=== PATIENT | female | born 1930 | race Asian ===

== ENCOUNTER 2017-03-17 00:35 | Inpatient (IN) | payer OTHER ==
[~2017-03-17] VITALS: Ht 152.4 cm; Wt 59.0 kg
[2017-03-17 01:32] LABS: BASOPHIL % 0.4 % (0-2); PLATELET COUNT 142 x10^3mcL (130-400)
[2017-03-17 01:39] LABS: CALCIUM 8.7 mg/dL (8.5-10.1); CARBON DIOXIDE 25.7 mmol/L (21-32); CHLORIDE SERUM 104 mmol/L (98-107); GLUCOSE SERUM 181 mg/dL (74-106); POTASSIUM SERUM 3.8 mmol/L (3.5-5.1); RED CELL DISTRIBUTION WIDTH 14.6 % (11.5-14.5); SODIUM SERUM 138 mmol/L (136-145)
[2017-03-17 01:47] LABS: ALBUMIN 3.5 g/dL (3.4-5.0); ALKALINE PHOSPHATASE 57 U/L (46-116); ALT/SGPT 26 U/L (14-59); AST/SGOT 26 U/L (15-37); BILIRUBIN TOTAL 1.44 mg/dL (0.20-1.00); TOTAL PROTEIN, SERUM 8.2 g/dL (6.4-8.2)
[2017-03-17 01:52] LABS: CK-MB < 0.5 ng/mL (0-3.6); CREATINE KINASE 58 U/L (26-192)
[2017-03-17] MEDS ORDERED: ATENOLOL25 MG PO (02:39)
[2017-03-17] MEDS ORDERED: LOVASTATIN40 MG PO (03:15)
[2017-03-17] MEDS ORDERED: TENORMIN50 MG PO (03:16)
[2017-03-17 03:48] VITALS: BP 137/67
[2017-03-17 03:49] LABS: microscopic required? YES; urine erythrocyte NEGATIVE (NEGATIVE)
[2017-03-17 04:45] LABS: CHOLESTEROL/HDL RATIO 2.6
[2017-03-17 04:47] LABS: FREE T4 1.3 ng/dL (0.76-1.46); FREE THYROXINE INDEX 3.4 ug/dL (1.4-4.5); T4(THYROXINE) 11.1 ug/dL (4.7-13.3)
[2017-03-17 10:40] VITALS: BP 116/62
[2017-03-17 14:00] VITALS: BP 122/64
[2017-03-17 14:00] LABS: BASOPHIL % 0.2 % (0-2); PLATELET COUNT 130 x10^3mcL (130-400)
[2017-03-17 14:24] LABS: RED CELL DISTRIBUTION WIDTH 14.9 % (11.5-14.5)
[2017-03-17 18:18] VITALS: BP 138/70
[2017-03-17 22:48] VITALS: BP 152/70
[2017-03-18 06:05] LABS: BASOPHIL % 0.4 % (0-2); PLATELET COUNT 138 x10^3mcL (130-400)
[2017-03-18 06:26] LABS: BILIRUBIN TOTAL 1.11 mg/dL (0.20-1.00); CALCIUM 8.2 mg/dL (8.5-10.1); CARBON DIOXIDE 23.7 mmol/L (21-32); CHLORIDE SERUM 108 mmol/L (98-107); GLUCOSE SERUM 92 mg/dL (74-106); POTASSIUM SERUM 3.8 mmol/L (3.5-5.1); SODIUM SERUM 141 mmol/L (136-145)
[2017-03-18 06:34] VITALS: BP 128/54
[2017-03-18 06:42] LABS: RED CELL DISTRIBUTION WIDTH 15.4 % (11.5-14.5)
[2017-03-18 10:07] VITALS: BP 115/52
[2017-03-18] MEDS ORDERED: ATORVASTATIN CA40 M1 PO (13:51)
[2017-03-18] MEDS ORDERED: CLINDAMYCIN HC300 MG PO (13:54)
[2017-03-18] MEDS ORDERED: LEVAQUIN750 MG PO (13:54)
[2017-03-18] MEDS ORDERED: LAC PO (13:55)
[2017-03-18 13:56] VITALS: BP 115/52
[2017-03-18 15:04] VITALS: BP 148/71
== END 2017-03-18 15:46 | disposition home or self-care (01) | DRG 177 ==
LOC: ED 00:35 → DU 02:23
PROVIDERS: Emergency Medicine; Family Medicine; ADMIT Family Medicine
DX: J69.0 Pneumonitis due to inhalation of food and vomit (principal); I50.43 Acute on chronic combined systolic (congestive) and diastolic (congestive) heart failure; I11.0 Hypertensive heart disease with heart failure; R55 Syncope and collapse; K80.20 Calculus of gallbladder without cholecystitis without obstruction; K76.0 Fatty (change of) liver, not elsewhere classified; M19.042 Primary osteoarthritis, left hand; M19.041 Primary osteoarthritis, right hand; E78.5 Hyperlipidemia, unspecified; Z87.891 Personal history of nicotine dependence
CPT/HCPCS: 82962; 83880; 84439; 94150; J0696; J1200; J1956; J2543; J7030; Q0092; Q9967

== ENCOUNTER 2018-03-08 21:09 | Inpatient (IN) | payer OTHER ==
[~2018-03-08] VITALS: Ht 152.4 cm; Wt 59.0 kg
[~2018-03-08 21:09] MED LIST: ATENOLOL25 MG PO; ATORVASTATIN CA40 M1 PO; CLINDAMYCIN HC300 MG PO; LAC PO; LEVAQUIN750 MG PO; LOVASTATIN40 MG PO; TENORMIN50 MG PO
[2018-03-08 21:17] VITALS: Ht 152.4 cm; Wt 59.0 kg
[2018-03-09 00:28] LABS: BASOPHIL % 0.2 % (0-2)
[2018-03-09 00:32] LABS: PLATELET COUNT 129 x10^3mcL (130-400); RED CELL DISTRIBUTION WIDTH 15.2 % (11.5-14.5)
[2018-03-09 00:38] LABS: CALCIUM 8.7 mg/dL (8.5-10.1); CARBON DIOXIDE 26.6 mmol/L (21-32); CHLORIDE SERUM 106 mmol/L (98-107); CREATININE SERUM 0.9 mg/dL (0.6-1.0); GLUCOSE SERUM 125 mg/dL (74-106); POTASSIUM SERUM 3.8 mmol/L (3.5-5.1); SODIUM SERUM 140 mmol/L (136-145)
[2018-03-09 00:55] LABS: ALBUMIN 3.4 g/dL (3.4-5.0); ALKALINE PHOSPHATASE 90 U/L (46-116); BILIRUBIN TOTAL 1.2 mg/dL (0.20-1.00); TOTAL PROTEIN, SERUM 7.4 g/dL (6.4-8.2)
[2018-03-09 00:57] LABS: ALT/SGPT 1133 U/L (14-59); AST/SGOT 1906 U/L (15-37); LIPASE 8532 IU/L (73-393)
[2018-03-09 03:35] VITALS: BP 142/64
[2018-03-09 04:05] LABS: T3 TOTAL 1.05 ng/mL
[2018-03-09 04:11] LABS: CHOLESTEROL/HDL RATIO 3.2; MAGNESIUM 2.3 mg/dL (1.8-2.4); PHOSPHOROUS 3.6 mg/dL (2.5-4.9)
[2018-03-09 04:20] LABS: UA SPECIFIC GRAVITY 1.015 (1.005-1.035); microscopic required? YES; urine erythrocyte NEGATIVE (NEGATIVE)
[2018-03-09 04:25] LABS: FREE T4 1.33 ng/dL (0.76-1.46); FREE THYROXINE INDEX 3.9 ug/dL (1.4-4.5); T4(THYROXINE) 10.5 ug/dL (4.7-13.3)
[2018-03-09 04:28] LABS: AMPHETAMINE QUAL UR NONE DETECTED (See below)
[2018-03-09 06:28] VITALS: BP 139/72
[2018-03-09 08:50] VITALS: BP 135/68
[2018-03-09 13:59] VITALS: BP 139/63
[2018-03-09 17:32] VITALS: BP 131/62
[2018-03-09 22:09] VITALS: BP 138/63
[2018-03-10 06:07] VITALS: BP 154/71
[2018-03-10 06:23] LABS: BASOPHIL % 0.6 % (0-2)
[2018-03-10 06:54] LABS: ALKALINE PHOSPHATASE 70 U/L (46-116); ALT/SGPT 510 U/L (14-59); AST/SGOT 300 U/L (15-37); BILIRUBIN DIRECT 0.41 mg/dL (0.0-0.2); BILIRUBIN TOTAL 1.5 mg/dL (0.20-1.00); CALCIUM 8.2 mg/dL (8.5-10.1); CARBON DIOXIDE 24.8 mmol/L (21-32); CHLORIDE SERUM 111 mmol/L (98-107); GLUCOSE SERUM 79 mg/dL (74-106); MAGNESIUM 2.1 mg/dL (1.8-2.4); POTASSIUM SERUM 3.9 mmol/L (3.5-5.1); SODIUM SERUM 145 mmol/L (136-145); TOTAL PROTEIN, SERUM 6.4 g/dL (6.4-8.2)
[2018-03-10 06:58] LABS: ALBUMIN 2.8 g/dL (3.4-5.0); AMYLASE 397 U/L (25-115)
[2018-03-10 07:05] LABS: PLATELET COUNT 106 x10^3mcL (130-400); RED CELL DISTRIBUTION WIDTH 15.2 % (11.5-14.5)
[2018-03-10 07:08] LABS: LIPASE 2592 IU/L (73-393)
[2018-03-10 13:29] VITALS: BP 140/61
[2018-03-10 16:57] VITALS: BP 141/62
[2018-03-10 21:11] VITALS: BP 118/62
[2018-03-11 05:59] VITALS: BP 138/64
[2018-03-11 06:30] LABS: CALCIUM 8.9 mg/dL (8.5-10.1); CARBON DIOXIDE 25.6 mmol/L (21-32); CHLORIDE SERUM 107 mmol/L (98-107); GLUCOSE SERUM 113 mg/dL (74-106); MAGNESIUM 2.1 mg/dL (1.8-2.4); PHOSPHOROUS 4.2 mg/dL (2.5-4.9); POTASSIUM SERUM 4.2 mmol/L (3.5-5.1); SODIUM SERUM 141 mmol/L (136-145)
[2018-03-11 06:57] LABS: BASOPHIL % 0 % (0-2); PLATELET COUNT 119 x10^3mcL (130-400); RED CELL DISTRIBUTION WIDTH 15.5 % (11.5-14.5)
[2018-03-11 10:17] VITALS: BP 143/59
[2018-03-11 11:00] LABS: BILIRUBIN DIRECT 0.29 mg/dL (0.0-0.2); BILIRUBIN TOTAL 0.9 mg/dL (0.20-1.00); TOTAL PROTEIN, SERUM 6.5 g/dL (6.4-8.2)
[2018-03-11 11:01] LABS: ALBUMIN 2.9 g/dL (3.4-5.0)
[2018-03-11 17:07] VITALS: BP 147/69
[2018-03-11 21:02] VITALS: BP 126/60
[2018-03-12] VITALS (8 sets, daily range): BP systolic 119–175; BP diastolic 56–81
[2018-03-12 06:35] LABS: ALKALINE PHOSPHATASE 60 U/L (46-116); ALT/SGPT 253 U/L (14-59); AST/SGOT 74 U/L (15-37); BILIRUBIN DIRECT 0.29 mg/dL (0.0-0.2); CALCIUM 7.8 mg/dL (8.5-10.1); CARBON DIOXIDE 29.5 mmol/L (21-32); CHLORIDE SERUM 109 mmol/L (98-107); CREATININE SERUM 0.9 mg/dL (0.6-1.0); GLUCOSE SERUM 99 mg/dL (74-106); PHOSPHOROUS 2.5 mg/dL (2.5-4.9); POTASSIUM SERUM 3.4 mmol/L (3.5-5.1); SODIUM SERUM 142 mmol/L (136-145); TOTAL PROTEIN, SERUM 6.5 g/dL (6.4-8.2)
[2018-03-12 06:48] LABS: ALBUMIN 2.8 g/dL (3.4-5.0)
[2018-03-12 07:09] LABS: BASOPHIL % 0.2 % (0-2)
[2018-03-12 07:11] LABS: PLATELET COUNT 124 x10^3mcL (130-400); RED CELL DISTRIBUTION WIDTH 15.6 % (11.5-14.5)
[2018-03-12] MEDS ORDERED: NOVAPLUS ZOSYN50 M1 IV (21:48)
[2018-03-12] MEDS ORDERED: LAC PO (21:48)
== END 2018-03-12 23:10 | disposition short-term general hospital (02) | DRG 417 ==
LOC: ED 21:09 → MU 03-09 01:18 → DU 03-09 01:18 → MU 03-11 10:23
PROVIDERS: Emergency Medicine; Family Medicine; Internal Medicine Gastroenterology; Surgery
PROC: 0FT44ZZ Resection of Gallbladder, Percutaneous Endoscopic Approach (ICD-10-PCS; principal; 2018-03-10 08:30)
DX: K85.10 Biliary acute pancreatitis without necrosis or infection (principal); N17.0 Acute kidney failure with tubular necrosis; E43 Unspecified severe protein-calorie malnutrition; K80.10 Calculus of gallbladder with chronic cholecystitis without obstruction; K76.89 Other specified diseases of liver; D69.6 Thrombocytopenia, unspecified; I10 Essential (primary) hypertension; E78.5 Hyperlipidemia, unspecified; R73.03 Prediabetes; Z87.891 Personal history of nicotine dependence
CPT/HCPCS: 78226; 82962; 83880; 84439; 94150; 97110-GP; 97530-GP; A9537; J0360; J1885; J2270; J2405; J2543; J2704; J3010; J3490; J7030; J7040; J7120; Q0092; Q9967

== ENCOUNTER 2018-07-03 06:37 | Emergency (ER) | payer OTHER ==
[~2018-07-03] VITALS: Ht 160 cm; Wt 52.2 kg
[~2018-07-03 06:37] MED LIST changes: +NOVAPLUS ZOSYN50 M1 IV
[2018-07-03 06:45] VITALS: Ht 160 cm; Wt 52.2 kg
[2018-07-03 07:40] LABS: CALCIUM 8.8 mg/dL (8.5-10.1); CARBON DIOXIDE 24.6 mmol/L (21-32); CHLORIDE SERUM 105 mmol/L (98-107); CREATININE SERUM 0.8 mg/dL (0.6-1.0); GLUCOSE SERUM 111 mg/dL (74-106); POTASSIUM SERUM 3.8 mmol/L (3.5-5.1); SODIUM SERUM 138 mmol/L (136-145)
[2018-07-03 07:45] LABS: ALKALINE PHOSPHATASE 61 U/L (46-116); ALT/SGPT 24 U/L (14-59); AST/SGOT 20 U/L (15-37); BILIRUBIN TOTAL 0.6 mg/dL (0.20-1.00); TOTAL PROTEIN, SERUM 7.7 g/dL (6.4-8.2)
[2018-07-03 07:46] LABS: BASOPHIL % 0.8 % (0-2); PLATELET COUNT 160 x10^3mcL (130-400); RED CELL DISTRIBUTION WIDTH 14.5 % (11.5-14.5)
[2018-07-03 07:48] LABS: ALBUMIN 3.1 g/dL (3.4-5.0)
[2018-07-03 09:50] VITALS: BP 156/75
== END 2018-07-03 09:50 | disposition home or self-care (01) ==
LOC: ED 06:37
PROVIDERS: Emergency Medicine
DX: S22.32XA Fracture of one rib, left side, initial encounter for closed fracture (principal); S79.912A Unspecified injury of left hip, initial encounter; I10 Essential (primary) hypertension; W18.39XA Other fall on same level, initial encounter; Y93.E1 Activity, personal bathing and showering; Y92.002 Bathroom of unspecified non-institutional (private) residence as the place of occurrence of the external cause; Y99.8 Other external cause status
CPT/HCPCS: 36415